=== PATIENT | male | born 1985 | race Hispanic/Latino ===

== ENCOUNTER 2022-05-10 12:38 | Emergency (ER) | payer OTHER, BC ==
[2022-05-10] MEDS ORDERED: Morphine 4 MG/ML VIAL ONE (13:01)
[2022-05-10 15:09] LABS: Bilirubin Negative (Negative); Blood, Urine Negative (Negative); Clarity Clear (Clear); Glucose, Urine (Dipstick) Negative (Negative); Ketone, Urine Negative (Negative); Leukocyte Negative (Negative); Nitrite Negative (Negative); Protein, Urine (Dipstick) Negative (Neg-Trace); Urobilinogen 0.2 mg/dL (Less than 2)
[2022-05-10 15:10] LABS: Specific Gravity, Urine 1.028 (1.002-1.036)
== END 2022-05-10 15:35 | disposition home or self-care (01) ==
LOC: NAV ERS 12:38
DX: S39.012A Strain of muscle, fascia and tendon of lower back, initial encounter (principal); S63.501A Unspecified sprain of right wrist, initial encounter; V47.5XXA Car driver injured in collision with fixed or stationary object in traffic accident, initial encounter
CPT/HCPCS: 72125; 72131; 81003; 96374; J2270